=== PATIENT | male | born 1965 | race Caucasian/White ===

== ENCOUNTER 2021-04-27 11:38 | Outpatient (CLI) | payer OTHER, SELFPAY | END 2021-04-27 11:39 | disposition home or self-care (01) | LOC: ANHLAB 11:41 | PROVIDERS: PCP Family Medicine; Visit Provider Otolaryngology | DX: E07.9 Disorder of thyroid, unspecified (principal); E06.3 Autoimmune thyroiditis; E03.9 Hypothyroidism, unspecified | CPT/HCPCS: 36415; 84443 ==

== ENCOUNTER 2023-09-19 07:43 | Emergency (ER) | payer OTHER, SELFPAY ==
--- NOTE | ~2023-09-19 | CT_ITS ---
EXAMINATION: CT abdomen pelvis w con DATE: 09/19/2023 09:45 INDICATION: Right upper quadrant pain. TECHNIQUE: Computed tomography (CT) of the head was performed with 100 cc Omnipaque 350 intravenous c ontrast. The dose-length product was 817.56 mGy-cm. Automated exposure control and iterative reconstr uction technique were employed. COMPARISON: None FINDINGS: There is calcified granuloma right lower lobe. Heart size normal. No significant pleural or pericardial effusion. There are small low-density lesions throughout the liver, most likely benign c ysts. The spleen, pancreas, adrenal glands and kidneys are unremarkable. Bladder wall is mildly thick ened, although not well distended. Nonobstructive bowel gas pattern. No significant vascular abnormal ity. Gallbladder is present. No lymphadenopathy. Mild lumbar spondylosis. No free air or free fluid. IMPRESSION: 1. No acute abdominal abnormality. 2: Mild bladder wall thickening which may be due to underdistention although cystitis should be cons idered in the appropriate clinical setting. Reviewed, dictated and finalized at location B. IMPRESSION: 1. No acute abdominal abnormality. 2: Mild bladder wall thickening which may be due to underdistention although c ystitis should be considered in the appropriate clinical setting.
[2023-09-19 08:00] VITALS: BP 161/98; PULSE 94; RESP 16; TEMP 36.6; O2SAT 97
[2023-09-19 08:20] LABS: Basophils Absolute Auto 0.1 K/mm3 (0.0-0.1); Basophils Percent Auto 1.9 % (0.2-1.2); Eosinophils Absolute Auto 0.2 K/mm3 (0-0.3); Eosinophils Percent Auto 3.8 % (0-4.4); Hematocrit 44.5 % (42.0-52.0); Hemoglobin 15.2 g/dL (14.0-18.0); Immature Granulocyte Absolute 0.01 K/mm3 (0.00-0.031); Immature Granulocyte Percent A 0.2 % (0-0.5); Lymphocytes Absolute Auto 1.82 K/mm3 (0.9-3.2); Lymphocytes Percent Auto 43.8 % (18.3-44.2); Mean Corpuscular HGB Conc 34.2 g/dl (32-36); Mean Corpuscular Hemoglobin 29.3 pg (26-34); Mean Corpuscular Volume 85.7 fl (80-100); Mean Platelet Volume 9.5 fl (7.4-10.4); Monocytes Absolute Auto 0.4 K/mm3 (0.1-0.6); Monocytes Percent Auto 9.1 % (2.6-8.5); Neutrophils Absolute Auto 1.7 K/mm3 (1.3-6.7); Neutrophils Percent Auto 41.2 % (45.5-73.1); Platelet Count Result 223 k/mm3 (150-375); Red Blood Count 5.19 M/mm3 (4.6-6.20); Red Cell Distribution Width 12.6 % (11.5-14.5); White Blood Count 4.2 K/mm3 (4.5-10.0)
[2023-09-19 08:30] LABS: Alanine Aminotransferase 20 U/L (6-50); Albumin Level 4.3 g/dL (3.5-5.1); Alkaline Phosphatase 63 U/L (38-126); Anion Gap 7 mmol/L (4-12); Aspartate Amino Transferase 18 U/L (17-59); Bilirubin,Total 0.4 mg/dL (0.2-1.3); Blood Urea Nitrogen 16 mg/dL (9-20); Calcium 8.8 mg/dL (8.4-10.2); Carbon Dioxide 27 mmol/L (22-30); Chloride 105 mmol/L (98-107); Estimated CRCL calculation 121 ml/min; Estimated Glomerular Filt Rate > 60; Glucose 111 mg/dL (65-110); Lipase 812 U/L (23-300); Potassium 4.1 mmol/L (3.4-5.0); Sodium 139 mmol/L (137-145)
--- NOTE | 2023-09-19 09:07 | ED.ABDPAIN ---
HPI - Abdominal Pain General Chief Complaint: Abdominal Pain Stated Complaint: back and side pain Time Seen by Provider: 09/19/23 09:00 Source: patient Mode of arrival: ambulatory Limitations: no limitations History of Present Illness HPI narrative: This is a 57-year-old male with PMH of DM, Morgan's who presents to the ED with chief complaint of abdominal pain x3 weeks intermittently. Patient reports the pain is mainly in the epigastrium, right upper quadrant and in the back. He notes pain seems to be worse at nighttime, especially when lying on the right side. Patient reports the pain radiates into the right flank as well. Denies fevers, chills, nausea vomiting urinary symptoms, diarrhea or troubles with bowel movements. Denies chest pain, shortness of breath or cough. Patient states several years ago he had a pain like this and was seen by GI, Dr. Rosenthal. 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 Otherwise no abdominal surgical history or other significant past medical history. Related Data Home Medications Medication Instructions Recorded Confirmed metformin 500 mg tablet,extended ea PO 07/23/22 release 24 hr Allergies Allergy/AdvReac Type Severity Reaction Status Date / Time No Known Allergies Allergy Unverified 09/19/23 07:43 Review of Systems Review of Systems: All systems as dictated in [facility] Past Medical History Medical History Diabetes Family History Family History (System 08/08/22 @ 08:42 by Sharon Londono) Mother Hypertension Thyroid disorder Social History Social History (System 08/08/22 @ 08:42 by Sharon Londono) Smoking status: Never smoker Alcohol intake: current Substance use: never Substance use type: does not use Lack of Transportation: No Lack of Food: Never True Current Housing: I Have Housing Concerned About Future Housing: No Difficulty Paying Gas/Electric Bills: No Difficulty Paying for Meds: No Education: Bachelor's Degree Difficulty w/ Childcare or Family Care: No Living arrangements: with family Exam Narrative: GENERAL: Well-appearing, well-nourished, and in no acute distress. Resting comfortably HEAD: Normocephalic, atraumatic. EYES: PERRLA and EOMI. ENT: Nares clear, no rhinorrhea or epistaxis. Mucous membranes moist. Oropharynx without tonsillar hypertrophy exudate or other lesions. NECK: Supple. No adenopathy or masses. CHEST: No respiratory distress. Clear to auscultation. No wheezes rales or rhonchi HEART: Regular rate and rhythm. No murmur heard. Normal peripheral pulses. ABDOMEN: Mild epigastric tenderness. Soft, otherwise nontender, nondistended, normal active bowel sounds. Negative flank tenderness bilaterally MSK: Normal range of motion. No edema. SKIN: Warm, dry, no rash. NEURO: Alert and oriented x3. No focal deficits. PSYCH: Normal mood and affect. Course Reevaluation(s) Date: 09/19/23 Time: 11:17 Reevaluation #2: Patient still pain free without any intervention here in the department. Feels ready to go home. Vital Signs Vital signs: Vital Signs Temperature 97.8 F 09/19/23 08:00 Pulse Rate 94 09/19/23 08:00 Respiratory Rate 16 09/19/23 08:00 Blood Pressure 161/98 H 09/19/23 08:00 Pulse Oximetry 97 09/19/23 08:00 Oxygen Delivery Room Air 09/19/23 08:00 Temperature 97.8 F 09/19/23 08:00 Pulse Rate 86 09/19/23 11:45 Respiratory Rate 16 09/19/23 11:45 Blood Pressure 160/91 H 09/19/23 11:45 Pulse Oximetry 97 09/19/23 11:45 Oxygen Delivery Room Air 09/19/23 08:00 MDM - Abdominal Pain MDM Narrative Medical decision making narrative: This is a 49-year-old male who presents to the ED with chief complaint of several weeks of intermittent abdomin
[2023-09-19] MEDS: SODIUM CHLORIDE 0.9% IV 1,000 ML 999 ML IV CONT (09:50)
[2023-09-19 11:01] LABS: Appearance Urine Clear (Clear); Bilirubin Urine Negative (Negative); Blood Urine Negative (Negative); Color Urine Yellow (Yellow); Glucose Urine UA Negative (Negative); Ketones Urine Negative (Negative); Leukocyte Esterase Ur Negative LEU/UL (Negative); Nitrate Urine Negative (Negative); Protein Urine Negative (Negative); Urobilinogen Urine 0.2 mg/dL (<2.0); pH Urine 7.5 (5.0-9.0)
[2023-09-19 11:06] LABS: Add Urine Microscopic? NO; Specific Grav Ur 1.034 (1.001-1.035)
[2023-09-19 11:45] VITALS: BP 160/91; PULSE 86; RESP 16; O2SAT 97
== END 2023-09-19 11:45 | disposition home or self-care (01) ==
PROVIDERS: Student in an Organized Health Care Education/Training Program; Emergency Provider Physician Assistant; PCP Family Medicine
DX: R10.11 Right upper quadrant pain (principal); E06.3 Autoimmune thyroiditis; E11.9 Type 2 diabetes mellitus without complications; Z79.84 Long term (current) use of oral hypoglycemic drugs
CPT/HCPCS: 36415; 74177; 80053; 81003; 83690; 85025; 96360; 99284; J7030; Q9967

== ENCOUNTER 2024-09-19 16:37 | Emergency (ER) | payer OTHER, SELFPAY ==
--- NOTE | ~2024-09-19 | XR_ITS ---
XR chest 1V portable Ordering provider: Philip Lucero MD History: 58 years Male with . Lower extremity edema/NO CHEST COMPLAINTS . Comparison: January 25, 2018 FINDINGS: MEDIASTINUM: The cardiac silhouette is slightly enlarged. LUNGS: No infiltrates, effusions or pneumothorax. OTHER: No free air under the diaphragm. Degenerative changes of the spine. IMPRESSION: No acute cardiopulmonary pathology. Reviewed, dictated and finalized at location A.
--- OUTSIDE RECORDS SUMMARY | 2024-09-19 16:39 | XMS_ITS | Clinical Summary ---
Author Organization [facility] Address [address] [place] [id number] Care Team Providers Care Sales Training Coordinator Name Role Phone Unavailable Primary Care Provider Unavailabl e Social History Tobacco Use Types Packs/Day Years Used Date Smoking Tobacco: Never Assessed Sex and Gender Information Value Date Recorded Sex Assigned at Not on file Legal Sex Male 7:47 AM CDT Gender Identity Not on file Sexual Orientation Not on file Plan of Treatment Health Maintenance Due Date Last Done Comments Colorectal Cancer Screening Colonoscopy (10 Years) 1964 Annual Physical 11/23/1967 Hepatitis C 1982 DTaP, Tdap and Td Vaccines ( 1 - Tdap) 11/23/1983 Pneumococcal Vaccine: 50+ Ye ars (1 of 1 - PCV) 2014 Zoster Vaccines (1 of 2) 2014 COVID-19 Vaccine ( - 2023-2 5 season) 2024 Meningococcal B Vaccine Aged Out No l onger eligible based on patient's age to complete this topic Meningococcal Vaccine Aged Out No rosalie cookie eligible based on patient's age to complete this topic RSV Immunizations Under 20 Months Aged Out No longer eligible based on patient's age to complete this topic
--- OUTSIDE RECORDS SUMMARY | 2024-09-19 16:39 | XMS_ITS | Data Portability ---
Author Organization [place] [facility], Main Office Address [address] [place] [address] Care Team Providers Care General Internist And Physician Leader Name Role Phone ARIEL ELLIOTT Primary Care Provider [phone] ARIEL ELLIOTT Referring Provider [phone] Assessment Encounter Date Assessment Date Assessment LastModified by Organization Details LastModified Time 12/02/2023 12/02/2023 The patient gave verbal consent using TeleHealth services and the consent is documented in the medical record prior to using the service. The patient has been informed of what a TeleMedicine visit is. Patient is located at home. Provider is located at office. Names and roles of persons in addition to the patient and provider participating in telemedicine services include none. The patient had a 8 minute TeleMedicine consultation via [employer] to discuss the following: Not available 12/02/2023 17:59:03 05/01/2024 05/01/2024 By today's x-ray exam the patient is going to have moderately severe primary osteoarthritis in both knees the right knee bothers him more looks a little worse on the x-ray in terms of narrowing and osteophyte formation. We talked about treatment options today in detail we are going to get him started with diclofenac 75 mg b.i.d. with food and we will give him a home exercise program for strengthening of the right knee he declined formal physical therapy today. He did want to try a shot of cortisone at my recommendation therefore under sterile conditions I injected the patient's right knee joint in the office with 4 cc 0.5% bupivacaine and 20 mg of Kenalog. Patient tolerated procedure well. I will see him back in 6 weeks to see what impact treatment has had. If this has not helped we could consider gel shots. We will see how he does with time. If he changes his mind and wants to do the physical therapy formally he will call. He voiced understanding and agreed with the above plan. Not available 05/01/2024 11:57:17 06/12/2024 06/12/2024 The patient has moderately severe primary osteoarthritis both knees. Previously his right knee was bothering him more really not significant symptoms on the left. We tried the above listed treatment with cortisone and oral anti-inflammatory medication. Done very well and pleased with the results. Today we talked about other options for the future he was given home exercise program for low impact exercises for both knees. We talked about weight loss and continuing his oral anti-inflammatory medication he was given a refill of his diclofenac 75 mg b.i.d.. I will see him back as needed if his symptoms recur we could consider another shot of cortisone in the future. If that does not work we could also try a gel shot series. We talked about this in detail today. He voiced understanding and agreed with the above plan he will call for any further problems difficulties or questions. Not available 06/12/2024 14:37:54 07/03/2024 07/03/2024 The patient gave verbal consent using TeleHealth services and the consent is documented in the medical record prior to using the service. The patient has been informed of what a TeleMedicine visit is. Patient is located at home. Provider is located at office. Names and roles of persons in addition to the patient and provider participating in telemedicine services include none. The patient had a 8 minute TeleMedicine consultation via [employer] to discuss the following: Not available 07/03/2024 12:49:57 Plan of Treatment Reminders Order Date Submit Date Provider Last Modified By Organization Details Last Modified Time Details Appointments Follow Up 30 2024 01:00P GIRMA Mcclain Not available Not available Not available TeleMedic ine 2024 04:15P Ciera Reyes MD Not available Not available Not available Lab PSA, total, serum or plasma 2024 025 [email or web address] [facility] (Lab), [address] [place], [address], 07/06/2024 09:03:50 PSA, total, serum or plasma 2023 024 [email or web address] [facility], [address] [facility], [place], [address], 05/21/2024 14:46:02 unlisted lab - PSA total (reflex to free)-480 076-U 2023 024 [email or web address] [facility], [address] [facility], [place], [address], 12/19/2023 10:32:22 Referral None recorded. Procedures injection /aspirati on joint/bur sa (PROC) 2023 024 [email or web address] In-Office Order, Internal Use Only DO Not Attach Compendium DO Not Attach Compendium, Do Not Delete/merge, [id number] 05/01/2024 11:36:49 Surgeries None recorded. Imaging XR, knee 2023 024 [email or web address] [facility] [place], [address], [place], [address], 05/01/2024 13:37:03 Medication Orders diclofena c sodium 75 mg tablet,de layed release 2024 025 [email or web address] [facility], [address] [place] [address], [facility] [address], [place], [place], [id number], 06/12/2024 14:39:22 losartan 100 mg tablet 2023 024 [email or web address] 00 [facility] ([facility]), [facility], [address], [place], [place], [id number], 07/14/2024 10:11:25 amlodipin e 5 mg tablet 2023 024 [id number], [address] [facility], [place], [place], [id number], 05/14/2024 14:34:04 amlodipin e 5 mg tablet 2023 024 DWAIN [facility], [address] [place] [address], [address], 05/14/2024 14:35:19 diclofena c sodium 75 mg tablet,de layed release 2023 024 [email or web address] [facility], [address] [place], [address], 05/01/2024 13:37:03 bupivacai ne HCl 0.5 % (5 mg/mL) injection solution 2023 024 [email or web address] [id number], [address] [facility], [place], [place], [id number], 05/01/2024 13:37:03 Kenalog 10 mg/mL suspensio n for injection 2023 024 [id number], [address] [place], [place], [id number], 09/16/2024 20:15:13 Patient TargetsNo targets recorded. Patient Instructions Encounter Date Encounter Id Patient Instructions Last Modified By Organization Details Last Modified Time 12/02/2023 [id number] Plan 1. He agreed to go into active surveillance and I explained that means check his PSA every 6 months and an MRI most likely in 2-3 years or repeat biopsy in 2 or 3 years 2. The goal is to get him into his 70s with a PSA of less than 10 and will assess his health at that point 3. I told him that this is not life-threatening and no one from [facility] score 6 4. Someone from my office will need to schedule him for a telehealth in 6 months and I put a order in for his PSA and lab Corps I am assuming that is where he needs to go to have it done Not available 12/02/2023 18:02:12 05/14/2024 [id number] check BP iv stil l high , call us [email or web address] Not available 05/30/2024 17:19:34 07/03/2024 [id number] 1. This patient is doing well on active surveillance for his prostate cancer with a steady PSA level which is not rising 2. We will follow him every 6 months with a PSA 3. I put a order in for the PSA he needs a telehealth in 6 months Not available 07/03/2024 12:50:56 Reason for Referral None Reported. Results Created Date Observation Date Name Description Value Unit Range Abnormal Flag Note LastModifiedBy Organization Detail LastModifiedTime 11/08/19 24 11/08/2023 urina lysis , dipst ick Appearance Clear Not Available [facility] [address] [facility], [place], [address], 11/08/2023 16:59:06 11/08/19 24 11/08/2023 urina lysis , dipst ick Color Yellow Not Available [facility] [address] [facility], [place], [address], 11/08/2023 16:59:06 11/08/19 24 11/08/2023 urina lysis , dipst ick Glucose (reference range: negative mg/dl) Negati ve Not Available [facility] [address] [place] [address] Ave [facility], [place], [address], 11/08/2023 16:59:06 11/08/19 24 11/08/2023 urina lysis , dipst ick Bilirubin (reference range: negative mg/dl) Negati ve Not Available [facility] [address] [place] [address] Ave [facility], [place], [address], 11/08/2023 16:59:06 11/08/19 24 11/08/2023 urina lysis , dipst ick Ketone (reference range: negative mg/dl) Negati ve Not Available [facility] [address] [place], [address], 11/08/2023 16:59:06 11/08/19 24 11/08/2023 urina lysis , dipst ick Specific Carbon (reference range: 1.005-1.030) 1.030 Not Available [facility] [address], [place], [address], 11/08/2023 16:59:06 11/08/19 24 11/08/2023 urina lysis , dipst ick Blood (reference range: negative Marvel/ l) Negati ve Not Available [facility] [address], [place], [address], 11/08/2023 16:59:06 11/08/19 24 11/08/2023 urina lysis , dipst ick pH (reference range: 5-7) 5.5 Not Available [facility] [address], [place], [address], 11/08/2023 16:59:06 11/08/19 24 11/08/2023 urina lysis , dipst ick Protein (reference range: negative mg/dl) Negati ve Not Available [facility] [address], [place], [address], 11/08/2023 16:59:06 11/08/19 24 11/08/2023 urina lysis , dipst ick Urobilinogen (reference range: 0.2-1 mg/dl) 0.2 Not Available [facility] [address], [place], [address], 11/08/2023 16:59:06 11/08/19 24 11/08/2023 urina lysis , dipst ick Nitrite (reference rage: negative mg/dl) negati ve Not Available [facility] [address], [place], [address], 11/08/2023 16:59:06 11/08/19 24 11/08/2023 urina lysis , dipst ick Leukocytes (reference range: negative ramona/ l) Negati ve Not Available [facility] [place] [address], [place], [address], 11/08/2023 16:59:06 05/01/20 24 XR, knee No observ ation record ed. [email or web address] [facility] [place] [address], [place], [address], 05/01/2024 11:59:32 Result Notes None recorded. Problems Name Problem SNOMED Code Status Onset Date Resolution Date Notes Provider Name and Address Organization Details Recorded Time Acute dermatitis 40300196 Active Not Available [facility] 4 13:13:38 Low back pain 377683447 Active Not Available [facility] 4 13:13:38 Seasonal allergic rhinitis 939928038 Active Not Available [facility] 4 13:13:38 Hypertensi ve disorder 14387943 Active Not Available [facility] 4 13:13:38 Hypothyroi dism 85787505 Active Not Available [facility] 4 13:13:38 Verruca plantaris 02986715 Active Not Available [facility] 4 13:13:38 Diabetes mellitus 30406040 Active 2022 Not Available [facility] 4 13:13:38 Sleep apnea 55222513 Active Not Available [facility] 4 13:13:38 Neck pain 54921619 Active Not Available [facility] 4 13:13:38 Type 2 diabetes mellitus without complicati on 041758663 Active 2022 Not Available [facility] 4 13:13:38 Elevated blood-pres sure reading without diagnosis of hypertensi on 012822481 Active 2022 Not Available [facility] 4 13:13:38 Paresthesi a 96609644 Active 2022 Not Available [facility] 4 13:13:39 Screening for malignant neoplasm of prostate Active 2023 GIRMA Freeman [address], [place], [address] , [employer] [facility] 4 11:25:02 Screening for malignant neoplasm of colon Active 2023 GIRMA Freeman [address], [address], [place], [address] , [employer] [facility] 4 11:25:54 Hyperlipid emia screening Active 2023 GIRMA Freeman [address], [place], [address] , [employer] [facility] 4 11:27:51 At increased risk of nutritiona l deficit 565304533 Active 2023 GIRMA Freeman [address], [place], [address] , [employer] [facility] 4 11:29:21 Pain of right knee region 6589355300420 05 Active 2023 GIRMA Freeman [address], [address], [place], [address] , [employer] [facility] 4 11:31:06 Prostate specific antigen above reference range 820660369 Active 2023 GIRMA Freeman [address], [place], [address] , [employer] [facility] 4 16:00:45 Increased frequency of urination 301133097 Active 2023 HOA Van, [place] [facility] [place] [employer] [facility] 4 16:59:25 Malignant neoplasm of prostate 872135834 Active 2023 Jame Reyes MD [address], [place], [address] , [facility] [employer] [facility] 4 18:00:27 Pain of right knee joint 5755773291410 00 Active 2023 Pamella Elias RN null, [facility] [employer] [facility] 4 10:33:57 Osteoarthr itis of right knee joint 9277539156225 00 Active 2023 GIRMA Centeno [address], [place], [address] , [facility] [employer] [facility] 4 11:57:28 Bilateral osteoarthr itis of knees 7064766426081 07 Active 2023 GIRMA Centeno [address], [facility] [address], [place], [address] , [facility] [employer] [facility] 4 11:59:52 Notes:Some problems listed i n Document: #[id number] could not be added to this patient's chart. Please review this document and add these problems to the patient's chart manually as needed. Problem Notes None recorded. Procedures Surgical History None recorded. Imaging Results Imaging Date Name Status LastModified by Organiz ation Details LastModified Time 05/01/2024 XR, knee completed [email or web address] [facility] [place] [address] [facility] [address], [place], [address], 05/01/2024 11:59:32 Procedure Notes None recorded. Medical Equipment None Reported. Allergies No known drug allergies Medications Name Sig Start Date Stop Date Status Note LastModified by Organization Details LastModified Time cyclobenzap rine 10 mg tablet Take 1 tablet 3 times a day by oral route. active Not Available Not Available No t Available promethazin e-DM 6.25 mg-15 mg/5 mL oral syrup 02/03 completed Not Available Not Available Not Available cetirizine 10 mg tablet TK 1 T PO D 07/09 completed Not Available Not Available Not Available benzonatate 200 mg capsule active Not Available Not Available Not Available hydrocodone 5 mg-acetamin ophen 325 mg tablet active Not Available Not Available No t Available Synthroid 150 mcg tablet 01/14 completed Not Available Not Available Not Available bupivacaine HCl 0.5 % (5 mg/mL) injection solution Take 20 mg by injection route. 2023 active Not Available Not Available Not Avai lable prednisone 20 mg tablet 12/01 completed Not Available Not Available Not Available Toprol XL 50 mg tablet,exte nded release TK 1 T PO QD 07/09 completed Not Available Not Available Not Available amlodipine 5 mg tablet Take 1 tablet every day by oral route in the morning for 90 days. active Not Available Not Available No t Available ciprofloxac in 500 mg tablet take 1 tablet twice a day start day before procedure , day of procedure and day after 05/01 completed Not Available Not Available Not Available triamcinolo ne acetonide 0.1 % topical cream Apply 1 applicati on twice a day by topical route for 30 days. active Not Available Not Available No t Available Synthroid 175 mcg tablet active Not Available Not Available Not Available Kenalog 10 mg/mL suspension for injection Take 20 mg by injection route. 2023 active [facility]: [phone] Not Available Not Available Not Available amlodipine 10 mg tablet Take 1 tablet every day by oral route in the morning for 90 days. 2024 active Not Available Not Available Not Avai lable levothyroxi ne 125 mcg tablet TK 1 T DAILY 10/15 completed Not Available Not Available Not Available hydrochloro thiazide 12.5 mg capsule active Not Available Not Available Not Available omeprazole 20 mg capsule,del ayed release active Not Available Not Available Not Available diclofenac sodium 75 mg tablet,rebecca yed release Take 1 tablet twice a day by oral route. 2024 active Not Available Not Available Not Avai lable lisinopril 10 mg-hydrochl orothiazide 12.5 mg tablet Take 1 tablet every day by oral route. 07/09 completed Not Available Not Available Not Available losartan 100 mg tablet Take 1 tablet every day by oral route in the morning for 90 days. 2024 active Not Available Not Available Not Avai lable metformin ER 500 mg tablet,exte nded release 24 hr 2 tabs in am and 1 tab in evening active Not Available Not Available No t Available dicyclomine 10 mg capsule 10/30 completed Not Available Not Available Not Available naproxen 500 mg tablet Take 1 tablet twice a day by oral route with meal(s) for 30 days. 05/01 completed Not Available Not Available Not Available Ventolin HFA 90 mcg/actuati on aerosol inhaler 07/09 completed Not Available Not Available Not Available Shingrix (PF) 50 mcg/0.5 mL intramuscul ar suspension, kit PHARMACIS T ADMINISTE RED IMMUNIZAT ION ADMINISTE RED AT TIME OF DISPENSIN G 07/09 completed Not Available Not Available Not Available Fluzone Quad (PF) 60 mcg (15 mcg x 4)/0.5 mL IM syringe PHARMACIS T ADMINISTE RED IMMUNIZAT ION ADMINISTE RED AT TIME OF DISPENSIN G 07/09 completed Not Available Not Available Not Available ID NOW COVID-19 Test Kit TEST DIRECTED TODAY 07/02 completed Not Available Not Available Not Available Vitals Date Recorded Body height Body mass index (BMI) Body weight Provider Name and Address Organization Details Last Updated DateTime 12/02/2023 177.8 cm 31.6 kg/m2 99105.32 g Linn Thacker CMA [facility] 12/02/2023 15:31:07 Date Recorded Body height Body mass index (BMI) Body weight Provider Name and Address Organization Details Last Updated DateTime 05/01/2024 177.8 cm 33.7 kg/m2 916849.21 g Francesca Escalante CNA [place] [employer] [facility] 05/01/2024 10:50:27 Date Recorded Body height Body mass index (BMI) Body weight Body temperature Heart rate Oxygen saturation Oxygen saturation in Arterial blood by Pulse oximetry Systolic blood pressure Diastolic blood pressure Provider Name and Address Organization Details Last Updated DateTime 177.8 cm 33.9 kg/m2 841080. 8 g 97.4 [degF] 88 /min 96 % 96 % 148 mm[Hg] 94 mm[Hg] Pamella Elias RN [facility] [employer] [facility] 14:25:29 Date Recorded Body height Body mass index (BMI) Body weight Provider Name and Address Organization Details Last Updated DateTime 06/12/2024 180.34 cm 32.1 kg/m2 656247.25 g Francesca Escalante CNA [place] [facility] [employer] [facility] [employer] 06/12/2024 14:17:42 Date Recorded Body height Provider Name an d Address Organization Details Last Updated DateTime 07/03/2024 180.34 cm Tory Purcell [place] [facility] [employer] [facility] [employer] 07/03/2024 11:44:35 Social History Question Answer Notes LastModified by [employer] Details LastModified Time Tobacco Smoking Status Never Smoker Not Available [facility] 07/25/2022 08:43:21 What Is Your Level Of Alcohol Consumption? None [email or web address] Information not available 05/01/2024 What Is Your Level Of Caffeine Consumption? Heavy [id number] Information not available 07/25/2022 In The 14 Days Before Symptom Onset, Have You Had Close Contact With A Laboratory-confirm ed COVID-19 While That Case Was Ill? No [id number] Information not available 07/25/2022 In The 14 Days Before Symptom Onset, Have You Had Close Contact With A Person Who Is Under Investigation For COVID-19 While That Person Was Ill? No [id number] Information not available 07/25/2022 What Type Of Diet Are You Following? REGULAR [id number].[id number] 026 Information not available 07/25/2022 Have You Ever Been Counseled For Unhealthy Alcohol Use? No [id number] 026 Information not available 07/25/2022 Do You Use Any Illicit Or Recreational Drugs? No [id number] 026 Information not available 07/25/2022 Has Tobacco Cessation Counseling Been Provided? No [id number].[id number] 026 Information not available 07/25/2022 Have You Recently Traveled Abroad? No MIGRATION.[id number] 026 Information not available 07/25/2022 Do You Have Any Dietary Restrictions? No [id number].[id number] 026 Information not available 07/25/2022 Do You Or Have You Ever Used Any Other Forms Of Tobacco Or Nicotine? No [id number].[id number] 026 Information not available 07/25/2022 Sex: Unknown Functional Status Question Answer Note LastModified by [employer] Details LastModified Time What is your exercise level? None none at this point but he is trying to be more active [id number] Information not available 07/25/2022 Mental Status None recorded. Family History Relationship Description Onset Age of this Age Resolved Age Notes LastModified by Organization Details LastModified Time Father No current problems or disability [email or web address] Not available 06/12 14:16:37 Mother No current problems or disability [email or web address] Not available 06/12 14:16:37 Mother Hypertensive disorder [email or web address] Not available 2023 10:51:21 Mother History of thyroid disorder [email or web address] Not available 2024 14:16:37 Medical History Condition Response DIABETES, TYPE Y HYPERTENSION Y Past Encounters Encounter ID Performer Location Encounter Start Date Encounter Closed Date Diagnosis/Indication Diagnosis SNOMED-CT Code Diagnosis ICD10 Code Diagnosis Note [id number] [facility] [address] 06/11/2022 00:00:00 06/11/2022 18:55:06 [id number] [facility] [address] 07/02/2022 00:00:00 07/02/2022 21:50:49 [id number] Patricia Tillman MD [facility] [place] [address] 10/15/2022 10:57:35 10/15/2022 11:19:00 Type 2 diabetes mellitus without complication 477780877 E11.9 A1C 6.4% Continue same meds. F/u in 3 months Elevated blood-pressure reading without diagnosis of hypertension 563187798 R03.0 BP 140/100 Watch salt in diet Monitor BP away from here. If continues to be high will need to f/u in a couple of weeks. [id number] Patricia Tillman MD [facility] [address] 03/15/2023 12:05:26 03/18/2023 11:48:57 Paresthesia 82784091 R20.2 Use vit B12 and let me know if gets no better Type 2 vinh betes mellitus without complication 705888463 E11.9 A1C 7 % Continue same meds But increase metformin to 3 tabs a day.. F/u in 3 months [id number] GIRMA Freeman [facility] Kacie paul [address] [facility] [place] [address] 10/31/2023 10:48:13 10/31/2023 11:37:15 Type 2 diabetes mellitus without complication 903334717 E11.9 Hypertensive disorder 38 321348 I10 Screening for malignant neoplasm of prostate 588234814 Z12.5 Screening for malignant neoplasm of colon 390777848 Z12.11 Hyperlipid emia screening 371431833 Z13.220 [facility] of nutritional deficit 256280006 Z91.89 Pain of ri ght knee region 4453971946 82550 M25.561 Hypothyroidism 62874163 E03.9 Low back pain 028362840 M54.50 Seasonal a llergic rhinitis 698803983 J30.2 Sleep apnea 19036935 G47 .30 [id number] Jame [facility]yes [facility] [address] [place] [address] 11/08/2023 16:48:21 11/11/2023 11:54:14 Increased frequency of urination 656238026 R35.0 Prostate s pecific antigen above reference range 584861063 R97.20 [id number] Jame Reyes MD [facility] [address] [place] [address] 11/14/2023 15:28:54 11/19/2023 10:07:17 Prostate specific antigen above reference range 413721756 R97.20 [id number] Jame Reyes MD [facility] [address] [place] [address] 12/02/2023 13:35:05 12/03/2023 09:06:23 Malignant neoplasm of prostate 546155521 C61 [id number] GIRMA Centeno [facility] [address] [place] [address] 05/01/2024 10:37:19 05/01/2024 11:51:23 Pain of right knee joint [id number] M25.561 Bilateral osteoarthritis of knees [id number] 43905 M17.0 [id number] GIRMA Freeman [facility] [address] [place] [address] 05/14/2024 14:13:07 05/14/2024 14:38:34 Hypertensive disorder [id number] I10 Malignant neoplasm of prostate [id number] C61 Type 2 vinh betes mellitus without complication [id number] E11.9 Sleep apnea [id number] G47 .30 [id number] GIRMA Centeno [facility] [address] [facility] [address] [place] [address] 06/12/2024 14:15:23 06/12/2024 14:59:54 Bilateral osteoarthritis of knees [id number] 56100 M17.0 Pain of ri ght knee joint [id number] 33762 M25.410 [id number] Jame Reyes MD [facility] [address] [place] [address] 07/03/2024 11:37:09 07/03/2024 13:34:29 Screening for malignant neoplasm of colon [id number] Z12.11 History of malignant neoplasm of prostate [id number] Z85.46 Health Concerns Section Related Observation LastModified by Organization Detai ls LastModified Time None Recorded Concern Status LastModified by Organization Details LastModified Time None Recorded Advance Directives Directive None Recorded Payers Encounter Date Sequence Insurance Name Policy Number Policy Mejia Covered Member ID Mejia Member ID Guarantor Name 12/02/2023 1 [facility] [id number] Julio A Grizzard [id number] Julio A Grizzard 05/01/2024 1 [facility] [employer] [id number] Julio A Grizzard [id number] Julio A Grizzard 05/14/2024 1 [facility] [employer] [employer] [id number] Julio A Grizzard [id number] Julio A Grizzard 06/12/2024 1 [facility] [employer] [employer] [id number] Julio A Grizzard [id number] Julio A Grizzard 07/03/2024 1 [facility] [id number] Julio Britt [id number] Julio Britt Notes Date Note Type Note Provider Name and Address Organization Details Recorded Time 12/02/2023 text/html This patient's P SA increased from 2.9 up to 4.1 the patient's prostate biopsy results revealed he had 1 positive biopsy on the right a [place] score 3+3=6 with less than 5% positive biopsy. There is no capsular invasion and no nerve invasion Jame Reyes MD [address] [place] [address], [facility] [address], [place], [address], [place] [facility] 12/02/2023 18:02:19 05/01/2024 text/html the patient is a 58-year-old male who presents with a several year history of right knee pain. Lately it has been worse and more persistent. Most of the pain is localized medially he reports that if he sits with his knee bent for too long of a time this aggravates his knee occasionally he will get some popping and crepitation through the arc of motion. 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 The patient does take Aleve occasionally was recently on naproxen 500 mg b.i.d. but did not think that really helped much over the summer so he stopped taking it. If he has a bad day he will take some naproxen here and there. Occasionally he will get sharp stabbing pains in the medial compartment denies any locking or catching no trauma or injury to the knee no effusion or swelling. Some days are pretty good other days it keeps him awake at night. Depends on his activity level that day. Today states the pain is about a 3 on a scale of 1-10. Occasionally the opposite knee will also bother him a little bit but not as bad as the right he comes in today for initial evaluation treatment of his right knee pain. the patient did bring x-rays with him today which showed moderately severe narrowing in the medial joint space tricompartmental osteophytes are noted both knees right worse than left. Subchondral sclerotic changes noted in the medial tibial plateau of the right knee. No sunrise view was done we are going to get a new x-ray of his patellofemoral articulation today as well. Otherwise I have reviewed the x-rays he brought with him today and agreed with the above findings. New past medical history sheet was reviewed and signed on the intake sheet of today's date drug allergies current medications family social history previous surgical history 10 point review of systems was reviewed and discussed in detail today with the patient. GIRMA Centeno [address], [place], [address], [facility] 05/01/2024 12:00:32 05/14/2024 text/html BP up GIRMA Freeman [address], [place], [address], [facility] 05/30/2024 17:19:38 06/12/2024 text/html The patient retu rns for recheck of his right knee. He has moderate primary osteoarthritis in both knees but the right knee as the 1 that was bothering him. He has significant narrowing in the tibial femoral and patellofemoral articulations with small marginal osteophytes and hypertrophic changes. We treated him with a shot of cortisone followed by diclofenac 75 mg b.i.d.. The patient comes in today for 6 week recheck he states he is feeling much better the pain has basically gone. He would like get back into the gym to strength in his legs and get in better physical condition. He asked about what this would entail I have advised him to stay away from heavy impact exercise and certain things that may aggravate his symptoms. We talked about doing exercise bike or elliptical machine and low-impact type exercises. I have told him we can get him set up with a home exercise program we will give him instructions on this today. Overall he is feeling much better comes in today to talk about further treatment options in the future including home exercise program. He also needs a refill on his diclofenac. GIRMA Centeno [address], [place], [address], [facility] 06/12/2024 14:38:49 07/03/2024 text/html Here to review P SA results. 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 He had just 1 positive biopsy on the right with only 5% of the core being positive. His PSA has been as high as 4.1 and his most recent PSA now is 3.8. He has been put into active surveillance Jame Reyes MD [address] [place] [address], [place], [address], [place] [facility] 07/03/2024 12:51:21
[2024-09-19 17:28] VITALS: BP 130/82; PULSE 97; RESP 16; TEMP 36.9; O2SAT 98
--- OUTSIDE RECORDS SUMMARY | 2024-09-19 20:44 | XMS_ITS | Clinical Summary ---
Author Organization [facility] Address [address] [place] [address] Care Team Providers Care Church Warden Name Role Phone Unavailable Primary Care Provider [...]
[2024-09-19 21:30] VITALS: BP 136/74; PULSE 80; RESP 16; O2SAT 99
--- NOTE | 2024-09-19 21:38 | ED_ITS ---
HPI - General Adult General Chief complaint: Extremity Problem,Nontraumatic Stated complaint: bilateral feet swelling Time Seen by Provider: 09/19/24 20:26 History of Present Illness HPI narrative: This is a 58-year-old male presenting ED for lower extremity edema. His noticed it earlier today and insisted that he come to the emergency department. 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 He is not have any history of congestive heart failure. He has no risk factors for DVT PE. His amlodipine was recently doubled from 5-10 mg daily. No chest pain difficulty breathing abdominal pain or urinary symptoms. Related Data Home Medications ?Medication ?Instructions ?Recorded ?Confirmed ?Last Taken ?Type metformin 500 mg tablet,extended ea PO 07/23/22 Unknown History release 24 hr Allergies Allergy/AdvReac Type Severity Reaction Status Date / Time No Known Allergies Allergy Unverified 09/19/24 16:37 [facility] Past Medical History Medical History Diabetes Family History Family History Mother Hypertension Thyroid disorder Social History Social History Smoking status: Never smoker Alcohol intake: current Substance use: never Substance use type: does not use Lack of Transportation: No Lack of Food: Never True Current Housing: I Have Housing Concerned About Future Housing: No Difficulty Paying Gas/Electric Bills: No Difficulty Paying for Meds: No Education: Bachelor's Degree Difficulty w/ Childcare or Family Care: No Living arrangements: with family Exam 2 Narrative: APPEARANCE: No apparent distress. Head: atraumatic. EYES: EOMI, NOSE: Atraumatic NECK: Trachea midline RESPIRATORY: No increased rate of breathing clear auscultation CARDIOVASCULAR: RRR, +2 pitting edema of the ankles bilaterally, symmetric ABDOMINAL: Non-distended MUSCULOSKELETAl: No obvious deformities NEURO: Alert. Moving 4/4 extremities SKIN:: Warm, dry. Normal color PSYCHIATRIC: Normal affect Course Vital Signs Vital signs: Vital Signs Temperature 98.5 F 09/19/24 17:28 Pulse Rate 97 09/19/24 17:28 Respiratory Rate 16 09/19/24 17:28 Blood Pressure 130/82 09/19/24 17:28 Pulse Oximetry 98 09/19/24 17:28 Oxygen Delivery Room Air 09/19/24 17:28 Temperature 98.5 F 09/19/24 17:28 Pulse Rate 80 09/19/24 21:30 Respiratory Rate 16 09/19/24 21:30 Blood Pressure 136/74 09/19/24 21:30 Pulse Oximetry 99 09/19/24 21:30 Oxygen Delivery Room Air 09/19/24 17:28 Medical Decision Making MDM Narrative Medical decision making narrative: -Course: 58-year-old male who recently increased his amlodipine presenting with ankle swelling. Wells score 0. D-dimer negative. No further workup for DVT necessary. BNP was unremarkable. Chest x-ray was clear. Kidney function normal. Edema likely combination of increased amlodipine, heat edema, and standing all day for work. Recommended stockings and elevation the feet at night. Primary care follow-up. -DDX includes but is not limited to: heat edema, dependent edema, CHF kidney failure DVT Vital Signs Vital Signs: Vital Signs Temperature 98.5 F 09/19/24 17:28 Pulse Rate 97 09/19/24 17:28 Respiratory Rate 16 09/19/24 17:28 Blood Pressure 130/82 09/19/24 17:28 Pulse Oximetry 98 09/19/24 17:28 Oxygen Delivery Room Air 09/19/24 17:28 Temperature 98.5 F 09/19/24 17:28 Pulse Rate 80 09/19/24 21:30 Respiratory Rate 16 09/19/24 21:30 Blood Pressure 136/74 09/19/24 21:30 Pulse Oximetry 99 09/19/24 21:30 Oxygen Delivery Room Air 09/19/24 17:28 Lab Data 09/19/24 21:42 09/19/24 21:42 Labs: Lab Results 09/19/24 Range/Units 21:42 WBC 5.6 (4.5-10.0) K/mm3 RBC 4.76 (4.6-6.20) M/mm3 Hgb 14.2 (14.0-18.0) g/dL Hct 42.8 (42.0-52.0) % MCV 89.9 (80-100) fl MCH 29.8 (26-34) pg MCHC 33.2 (32-36) g/dl RDW 13.2 (11.5-14.5) % Plt Count 209 (150-375) k/mm3 MPV 9.5 (7.4-10.4) fl Immature Gran % (Auto) 0.2 (0-0.5) % Neut % (Auto) 38.5 L (45.5-73.1) % Lymph % (Auto) 44.4 H (18.3-44.2) % [place] % (Auto) 10.1 H (2.6-8.5) % Eos % (Auto) 5.2 H (0-4.4) % Baso % (Auto) 1.6 H (0.2-1.2) % Lymph # (Auto) 2.47 (0.9-3.2) K/mm3 [place] # (Auto) 0.6 (0.1-0.6) K/mm3 Eos # (Auto) 0.3 (0-0.3) K/mm3 Baso # (Auto) 0.1 (0.0-0.1) K/mm3 Abs Immat Gran (auto) 0.01 (0.00-0.031) K/mm3 Absolute Neuts (auto) 2.1 (1.3-6.7) K/mm3 Absolute Nucleated RBC 0.000 (0.0-0.012) K/mm3 Nucleated RBC % 0.0 (0.0-0.2) % D-Dimer 0.30 (<0.48) ug/mL Sodium 138 (137-145) mmol/L Potassium 4.0 (3.4-5.0) mmol/L Chloride 104 (98-107) mmol/L Carbon Dioxide 25 (22-30) mmol/L Anion Gap 9 (4-12) mmol/L BUN 17 (9-20) mg/dL Creatinine 0.68 L (0.7-1.3) mg/dL Estim Creat Clear Calc 127 ml/min Estimated GFR > 60 (59 - ) Glucose 103 (65-110) mg/dL Calcium 9.1 (8.4-10.2) mg/dL Total Bilirubin 0.3 (0.2-1.3) mg/dL AST 24 (17-59) U/L ALT 34 (6-50) U/L Alkaline Phosphatase 60 (38-126) U/L NT-Pro-B Natriuret Pep 21 (19.9-100) pg/mL Total Protein 7.0 (6.3-8.2) g/dL Albumin 4.1 (3.5-5.1) g/dL Discharge Plan Discharge Clinical Impression: Dependent edema Patient Disposition: Home Condition: Stable Instructions: Antibiotic Form, Edema (ED) Additional Instructions: You were seen in the emergency department for edema of your ankles. This is likely from your amlodipine. Use compression stockings. Elevate your feet at night. Follow up to primary care for further management Patient Language: Malawian Prescriptions: No Action metformin 500 mg tablet extended release 24 hr PO dicyclomine 10 mg capsule 10 mg PO BID Qty: 30 0RF levothyroxine 175 mcg tablet 175 mcg PO DAILY Qty: 90 1RF Follow-up/Referrals: Fannie Jason DO [Primary Care Provider] -
[2024-09-19 21:49] LABS: Basophils Absolute Auto 0.1 K/mm3 (0.0-0.1); Basophils Percent Auto 1.6 % (0.2-1.2); Eosinophils Absolute Auto 0.3 K/mm3 (0-0.3); Eosinophils Percent Auto 5.2 % (0-4.4); Hematocrit 42.8 % (42.0-52.0); Hemoglobin 14.2 g/dL (14.0-18.0); Immature Granulocyte Absolute 0.01 K/mm3 (0.00-0.031); Immature Granulocyte Percent A 0.2 % (0-0.5); Lymphocytes Absolute Auto 2.47 K/mm3 (0.9-3.2); Lymphocytes Percent Auto 44.4 % (18.3-44.2); Mean Corpuscular HGB Conc 33.2 g/dl (32-36); Mean Corpuscular Hemoglobin 29.8 pg (26-34); Mean Corpuscular Volume 89.9 fl (80-100); Mean Platelet Volume 9.5 fl (7.4-10.4); Monocytes Absolute Auto 0.6 K/mm3 (0.1-0.6); Monocytes Percent Auto 10.1 % (2.6-8.5); Neutrophils Absolute Auto 2.1 K/mm3 (1.3-6.7); Neutrophils Percent Auto 38.5 % (45.5-73.1); Platelet Count Result 209 k/mm3 (150-375); Red Blood Count 4.76 M/mm3 (4.6-6.20); Red Cell Distribution Width 13.2 % (11.5-14.5); White Blood Count 5.6 K/mm3 (4.5-10.0)
[2024-09-19 21:58] LABS: Alanine Aminotransferase 34 U/L (6-50); Albumin Level 4.1 g/dL (3.5-5.1); Alkaline Phosphatase 60 U/L (38-126); Anion Gap 9 mmol/L (4-12); Aspartate Amino Transferase 24 U/L (17-59); Bilirubin,Total 0.3 mg/dL (0.2-1.3); Blood Urea Nitrogen 17 mg/dL (9-20); Calcium 9.1 mg/dL (8.4-10.2); Carbon Dioxide 25 mmol/L (22-30); Chloride 104 mmol/L (98-107); Estimated CRCL calculation 127 ml/min; Estimated Glomerular Filt Rate > 60; Glucose 103 mg/dL (65-110); Sodium 138 mmol/L (137-145)
[2024-09-19 22:07] LABS: NT Pro B Type Natriuretic Pept 21 pg/mL (19.9-100)
== END 2024-09-19 22:35 | disposition home or self-care (01) ==
PROVIDERS: Emergency Provider Emergency Medicine; PCP Family Medicine
DX: R60.0 Localized edema (principal); E11.9 Type 2 diabetes mellitus without complications; Z79.84 Long term (current) use of oral hypoglycemic drugs; Z79.899 Other long term (current) drug therapy
CPT/HCPCS: 36415; 71045; 80053; 83880; 85025; 85380; 99283

== ENCOUNTER 2025-02-06 08:04 | Emergency (ER) | payer OTHER, SELFPAY ==
--- NOTE | 2025-02-06 08:09 | ED.GENADULT ---
HPI - General Adult General Chief complaint: Allergic Reaction Stated complaint: Trouble Breathing Time Seen by Provider: 02/06/25 08:11 Source: patient, RN notes reviewed and old records reviewed Mode of arrival: ambulatory Limitations: no limitations History of Present Illness HPI narrative: 59year-old male presents to the [facility] with concerns of having trouble inhaling at 2:45 a.m. this morning. States that he was cat sitting and woke up with not being able to inhale. Denies any chest pain. States that he was cat sitting for long hair cat. States that this morning he came home, showered but still having itchy eyes. No chest pain or shortness of breath currently. Denies any difficulty breathing currently No treatment prior to arrival Treatments prior to arrival: none Related Data Home Medications ?Medication ?Instructions ?Recorded ?Confirmed ?Last Taken ?Type metformin 500 mg tablet,extended ea PO 07/23/22 Unknown History release 24 hr celecoxib 200 mg capsule mg 02/06/25 Unknown History furosemide 40 mg tablet mg 02/06/25 Unknown History losartan 100 mg tablet mg 02/06/25 Unknown History losartan 100 tablet 02/06/25 Unknown History mg-hydrochlorothiazide 25 mg tablet Allergies Allergy/AdvReac Type Severity Reaction Status Date / Time No Known Allergies Allergy Verified 02/06/25 08:16 Review of Systems Review of Systems: All systems reviewed & are unremarkable except as noted in HPI and below Constitutional: Constitutional: Reports no additional constitutional complaints ENT: Reports system reviewed and no additional complaints, except as documented Cardiovascular: Cardiovascular: Reports no additional cardiovascular complaints, Denies chest pain and Denies dyspnea Respiratory: Respiratory: Reports as per HPI, Denies chest congestion, Denies cough and Denies dyspnea Musculoskeletal: Musculoskeletal: Reports no additional musculoskeletal complaints Integumentary/Breasts: Skin/Breast: Reports system reviewed and no additional complaints, except as docu PMFSH Past Medical History Medical History Diabetes Family History Family History Mother Hypertension Thyroid disorder Social History Social History Smoking status: Never smoker Alcohol intake: current Substance use: never Substance use type: does not use Lack of Transportation: No Lack of Food: Never True Current Housing: I Have Housing Concerned About Future Housing: No Difficulty Paying Gas/Electric Bills: No Difficulty Paying for Meds: No Education: Bachelor's Degree Difficulty w/ Childcare or Family Care: No Living arrangements: with family Comments At the time of my signature, I reviewed and agree with the nursing past medical, surgical, social, and family history. There is no relevant family history pertinent to the patient complaint. Exam Const: General: cooperative, healthy appearing, comfortable, no acute distress, well developed, alert and well nourished Nutritional Appearance: well nourished Orientation/consciousness: patient oriented x3 Limitations: no limitations HENMT: Head: normal to inspection Ears: hearing grossly normal bilaterally, external ears normal, TM's normal bilaterally, EAC's normal, mastoids normal and no periauricular adenopathy Face and sinus: normal facial exam and face symmetric Mouth: Yes Normal oral and palatal mucosa present, Yes lip normal, Yes tongue normal and Yes moist mucous membranes Throat: posterior oropharynx normal, uvula midline and no uvular edema Eyes: General: appearance normal, both eyes and all related structures Alignment and Position: alignment normal Neck: Neck: normal visual inspection, full ROM, no lymphadenopathy and no meningeal signs Chest: Chest palpation & inspection: normal inspection of the chest Resp: Effort & Inspection: normal respiratory effort and able to speak in complete sentences Auscultation: clear to auscultation bilaterally, no crackles, no rales, no rhonchi and no wheezes Cardio: Rate: regular rate Skin: General skin exam: normal color and no rashes or lesions noted Neuro: General: patient oriented x3, gait normal, moves all extremities and no meningeal signs Cognition (Neuro): normal cognition Speech: normal speech Gait exam (Neuro): Normal gait present Extrem: General: normal to inspection, full ROM, capillary refill normal and normal gait Psych: Appearance: grossly normal and well kempt Mental Status: mental status grossly normal Speech and movement: Normal speech and movement present and Clear speech present Affect: normal affect Attitude: cooperative Course Course Level of Care: Express Care Visit Vital Signs Vital signs: Vital Signs Temperature 97.9 F 02/06/25 08:11 Pulse Rate 93 02/06/25 08:11 Respiratory Rate 14 02/06/25 08:11 Blood Pressure 138/91 H 02/06/25 08:11 Pulse Oximetry 98 02/06/25 08:11 Oxygen Delivery Room Air 02/06/25 08:11 Temperature 97.9 F 02/06/25 08:11 Pulse Rate 93 02/06/25 08:11 Respiratory Rate 14 02/06/25 08:11 Blood Pressure 138/91 H 02/06/25 08:11 Pulse Oximetry 98 02/06/25 08:11 Oxygen Delivery Room Air 02/06/25 08:11 Reviewed Medical Decision Making MDM Narrative Medical decision making narrative: Patient sitting in exam room. Patient is nontoxic, vitals are stable. Patient presents with trouble inhaling at 2:45 a.m. this morning that lasted approximately 2 minutes. Denies any symptoms currently. is asking about ?allergy shots. ? Discussed that that would have to come from an pharmacognosist after some testing. Patient with no signs or symptoms currently. Discussed prevention of staying away from the cat, OTC medication such as Zyrtec, Claritin, Benadryl and Pepcid. Patient is appropriate for outpatient treatment with signs and symptoms to proceed to the emergency room. Discharge instructions reviewed with patient, as well as provided in writing per nursing staff. The instructions also include specific and strict return/GO TO THE ER as well as f/u information. All questions have been answered, and the patient deny any further questions with discharge and discharge plan. Some parts of this dictation were generated by voice recognition software and may contain typographical and/or grammatical inaccuracies. Differential Diagnosis Differential Diagnosis: Allergies, URI, Medical Records Medical records reviewed: Yes I reviewed the external patient's medical records. Vital Signs Vital Signs: Vital Signs Temperature 97.9 F 02/06/25 08:11 Pulse Rate 93 02/06/25 08:11 Respiratory Rate 14 02/06/25 08:11 Blood Pressure 138/91 H 02/06/25 08:11 Pulse Oximetry 98 02/06/25 08:11 Oxygen Delivery Room Air 02/06/25 08:11 Temperature 97.9 F 02/06/25 08:11 Pulse Rate 93 02/06/25 08:11 Respiratory Rate 14 02/06/25 08:11 Blood Pressure 138/91 H 02/06/25 08:11 Pulse Oximetry 98 02/06/25 08:11 Oxygen Delivery Room Air 02/06/25 08:11 Reviewed Lab Data Lab results reviewed: Yes I reviewed the patient's lab results. Labs: Reviewed Critical Care Time Critical Care Time Critical Care Time: No Discharge Plan Discharge Clinical Impression: Hx of shortness of breath Patient Disposition: Home Condition: Stable Instructions: Allergies (ED) Additional Instructions: The most important part of your care is follow up with Primary care provider. Take Benadryl 25 mg every 8 hours for itching Take Zyrtec every day for 14 days Take Pepcid 20mg daily for 7 days Avoid hot showers, Take cool showers. Hot showers will make rashes worse Apply cool compresses every 2-3 hours for 15 minutes Go to the ER for new or worsening symptoms such as shortness of breath, chest pain. Patient Language: Polish Prescriptions: No Action celecoxib 200 mg capsule furosemide 40 mg tablet losartan-hydrochlorothiazide 100-25 mg tablet losartan 100 mg tablet metformin 500 mg tablet extended release 24 hr PO dicyclomine 10 mg capsule 10 mg PO BID Qty: 30 0RF levothyroxine 175 mcg tablet 175 mcg PO DAILY Qty: 90 1RF Follow-up/Referrals: PHYSICIAN,STUD BEEF [employer]ATTLE FARMER [Primary Care Provider, Internal Medicine] Time of Disposition: 08:31
[2025-02-06 08:11] VITALS: BP 138/91; PULSE 93; RESP 14; TEMP 36.6; O2SAT 98
== END 2025-02-06 08:37 | disposition home or self-care (01) ==
PROVIDERS: Emergency Provider Nurse Practitioner
DX: R06.02 Shortness of breath (principal); E11.9 Type 2 diabetes mellitus without complications; Z79.84 Long term (current) use of oral hypoglycemic drugs
CPT/HCPCS: 99213; G0463